=== PATIENT | male | born 1990 | race Caucasian/White ===

== ENCOUNTER → 2018-01-29 | Outpatient (CLI) | payer BC | LOC: M OUTALCOH 08:12 | DX: Z13.9 Encounter for screening, unspecified (principal); F10.10 Alcohol abuse, uncomplicated ==

== ENCOUNTER 2018-02-01 09:15 | Outpatient (RCR) | payer BC | END 2018-02-06 | LOC: M OUTALCOH 09:15 | DX: F10.10 Alcohol abuse, uncomplicated (principal) ==

== ENCOUNTER 2018-02-23 16:00 | Outpatient (RCR) | payer BC | END 2018-03-09 | LOC: M OUTALCOH 03-02 16:00 | DX: F10.10 Alcohol abuse, uncomplicated (principal) ==

== ENCOUNTER 2018-04-13 16:00 | Outpatient (RCR) | payer BC | END 2018-05-09 | LOC: M OUTALCOH 04-21 16:00 | DX: F10.20 Alcohol dependence, uncomplicated (principal) ==

== ENCOUNTER 2018-05-12 16:00 | Outpatient (RCR) | payer BC | END 2018-06-09 | LOC: M OUTALCOH 16:00 | DX: F10.20 Alcohol dependence, uncomplicated (principal) ==

== ENCOUNTER 2018-06-15 13:05 | Outpatient (RCR) | payer BC | END 2018-07-09 | LOC: M OUTALCOH 06-21 16:00 | DX: F10.20 Alcohol dependence, uncomplicated (principal) ==

== ENCOUNTER 2018-08-02 16:00 | Outpatient (RCR) | payer BC | END 2018-08-09 | LOC: M OUTALCOH 16:00 | PROVIDERS: ATTEND Psychiatry & Neurology Psychiatry | DX: F10.20 Alcohol dependence, uncomplicated (principal) ==

== ENCOUNTER 2018-08-17 07:52 | Outpatient (RCR) | payer BC | END 2018-09-09 | LOC: M OUTALCOH 07:52 | PROVIDERS: ATTEND Psychiatry & Neurology Psychiatry | DX: F10.20 Alcohol dependence, uncomplicated (principal) ==

== ENCOUNTER 2018-09-21 07:58 | Outpatient (RCR) | payer BC | END 2018-10-07 | LOC: M OUTALCOH 07:58 | PROVIDERS: ATTEND Psychiatry & Neurology Psychiatry | DX: F10.20 Alcohol dependence, uncomplicated (principal) ==

== ENCOUNTER 2018-10-25 10:50 | Outpatient (RCR) | payer BC | END 2018-11-07 | LOC: M OUTALCOH 10:50 | PROVIDERS: ATTEND Psychiatry & Neurology Psychiatry | DX: F10.20 Alcohol dependence, uncomplicated (principal) ==

== ENCOUNTER 2018-11-30 15:46 | Outpatient (RCR) | payer BC | END 2018-12-07 | LOC: M OUTALCOH 15:46 | PROVIDERS: ATTEND Psychiatry & Neurology Psychiatry | DX: F10.20 Alcohol dependence, uncomplicated (principal) ==

== ENCOUNTER → 2019-01-07 | Outpatient (RCR) | payer BC | LOC: M OUTALCOH 07:59 | PROVIDERS: ATTEND Psychiatry & Neurology Psychiatry | DX: F10.20 Alcohol dependence, uncomplicated (principal) ==

== ENCOUNTER 2019-02-18 08:44 | Outpatient (RCR) | payer BC | END 2019-03-09 | LOC: M OUTALCOH 08:44 | PROVIDERS: ATTEND Psychiatry & Neurology Psychiatry | DX: F10.20 Alcohol dependence, uncomplicated (principal) ==

== ENCOUNTER 2019-03-25 11:17 | Outpatient (RCR) | payer BC | END 2019-04-09 | LOC: M OUTALCOH 11:17 | PROVIDERS: ATTEND Psychiatry & Neurology Psychiatry | DX: F10.20 Alcohol dependence, uncomplicated (principal) ==

== ENCOUNTER 2019-04-29 08:10 | Outpatient (RCR) | payer BC | END 2019-05-09 | LOC: M OUTALCOH 08:10 | PROVIDERS: ATTEND Psychiatry & Neurology Psychiatry | DX: F10.20 Alcohol dependence, uncomplicated (principal) ==